=== PATIENT | female | born 1950 | race Caucasian/White ===

== ENCOUNTER → 2018-06-24 | Outpatient (CLI) | payer MEDICARE, OTHER ==
--- NOTE | 2018-06-24 11:41 | CT ---
EXAM DESCRIPTION: Cervical Spine: Computed Tomography. CLINICAL HISTORY: 67 years Female CERVICAL RADICULOPATHY. Neck pain. COMPARISON: Chest CT scan 06/06/2013. TECHNIQUE: Spiral, axial 2.5 x 2.5 mm scans through the cervical spine without contrast. Coronal and sagittal 2.0 mm Reconstructions. Total Exam DLP: 292.36 mGy-cm. This exam was performed according to our departmental dose-optimization program which includes automated exposure control, adjustment of the mA and/or kV according to patient size and/or use of iterative reconstruction technique; to reduce radiation dose to as low as reasonably achievable (ALARA). FINDINGS: Minimal narrowing of the atlantoaxial joint. Atlantoaxial occipital joint and C1-C2 facets are negative. C2-C3: Minimal posterior disc bulging. Disc space maintained. Arthrosis left facet and minimal left foraminal narrowing. Right neuroforamen and canal are patent. No fracture. C3-C4: Minimal posterior disc bulge. Disc space maintained. Canal and right neuroforamen are patent. Mild left neural foraminal narrowing with left facet arthrosis. No fracture. C4-C5: Significant disc space loss. Trace retrolisthesis. Anterior disc bulge and endplate ridging. Posterior disc osteophyte complex encroaching on the canal more to the right of midline. Moderate right neural foraminal narrowing with uncinate spur. Mild left neural foraminal narrowing. Facets are negative. No fracture. C5-6: Marked disc space loss. Posterior disc osteophyte complex abutting the cord. Bilateral uncinate spurs. Right facet arthrosis and right neural foraminal stenosis. Mild to moderate left neural foraminal narrowing. No fracture. C6-7: Disc space maintained with no significant disc bulge. Bilateral facets unremarkable. Canal and neural foramina are patent. No fractures. C7-T1: Disc space maintained with no disc bulge. Bilateral neural foramina and canal are patent. Facets are negative. No fractures. Other: Marked scarring in the bilateral lung apices with pleural thickening and blebs and bulla more right than left. Evaluation of the soft tissues limited due to lack of IV contrast. Small lymph nodes bilaterally in the base of the neck thoracic inlet, and upper neck and skull base soft tissues. No significant mass effect or effacement of the airway. IMPRESSION: 1. Arthrosis of the left C2-3 facet and minimal left neural foraminal narrowing. Mild left neural foraminal narrowing and facet arthrosis at C3-4. 2. Moderate disc space loss C4-5 posterior disc osteophyte complex encroaching on the canal and abutting the cord to the right of midline. Moderate right neural foraminal narrowing with uncinate spur. Correlate for right C5 radiculopathy. 3. Marked disc space loss at C5-C6. Posterior disc osteophyte complex abutting the cord. Right neural foraminal stenosis with right facet arthrosis and uncinate spur. Correlate for right C6 radiculopathy. 4. Advanced emphysematous changes in the bilateral lung apices. Also seen on prior chest CT scan July 2014. Electronically signed by: Tariq Flynn MD 06/24/2018 11:40 AM [employer]
== END ==
LOC: CT 07:41
DX: M54.12 Radiculopathy, cervical region (principal); M47.812 Spondylosis without myelopathy or radiculopathy, cervical region; M75.112 Incomplete rotator cuff tear or rupture of left shoulder, not specified as traumatic; M13.812 Other specified arthritis, left shoulder; M85.829 Other specified disorders of bone density and structure, unspecified upper arm

== ENCOUNTER → 2018-06-25 | Outpatient (CLI) | payer MEDICARE, OTHER ==
--- NOTE | 2018-06-25 10:15 | RAD ---
EXAM DESCRIPTION: Shoulder,Left four x-ray Views CLINICAL HISTORY: PAIN IN LEFT SHOULDER COMPARISON: None Available. TECHNIQUE: Four views of the left shoulder. FINDINGS: There is adequate internal and external rotation. Normal alignment on transaxillary and transscapular Y views There is no fracture or dislocation. Mild degenerative changes at the left AC joint. No focal bone lesion. Degenerative changes in the lower C-spine. Left apical pleural parenchymal scarring in the lung is present. There is a left breast implant. IMPRESSION: Negative for fracture or dislocation. Electronically signed by: Nikko Alcaraz MD 06/25/2018 10:14 AM [facility]
== END ==
LOC: RAD 08:03
PROVIDERS: ATTEND Orthopaedic Surgery
DX: M25.512 Pain in left shoulder (principal)

== ENCOUNTER → 2018-09-09 | Outpatient (CLI) | payer MEDICARE, OTHER ==
--- NOTE | 2018-09-09 15:32 | MRI ---
EXAM DESCRIPTION: Thoracic Spine w/o Contrast: Magnetic Resonance Imaging. CLINICAL HISTORY: THORACIC RADICULOPATHY COMPARISON: CT scan of the cervical spine 06/24/2018. TECHNIQUE: Multiplanar, multiple standard sequences, non contrast MRI, thoracic spine. FINDINGS: Approximately 50% compression of the central and anterior T3 vertebral body is visualized with marrow edema involving the entire vertebral body and bilateral pedicles. There is also greater than 50% compression of the T4 central and anterior vertebral body with marrow edema involving the entire vertebral body and both pedicles. 3 mm retropulsion of the vertebral body without cord compression. T3-4 disc space is maintained. This appears to be associated with a ill-defined invasive soft tissue mass also involving the medial left upper lobe pleura and mediastinum posterior to the descending aorta and extending laterally to the posterior left upper lobe pleura. There is also involvement of the adjacent lung, the paravertebral tissues abutting the left T2 vertebral body, the left T2-3 foramen, the medial left second rib, medial left third rib and medial left fourth rib. Most of the T2-3 disc space and T3-4 disc space are maintained. The left T3-4 foramen is destroyed. Invasion of the spinal canal from T3 through T5 with partial compression of the cord. Mostly anterior extradural mass. Fluid collection posterior to the T4 vertebral body anterior to the cord, either extra medullary or extradural. Invasion of the posterior T5 vertebral body more on the left than the right with involvement of both pedicles and involvement of bilateral T4-T5 foramina. Involvement of the medial left fifth rib and left transverse process. No involvement of the T5-6 disc space or foramina. No involvement of the T1-T2 disc space canal and bilateral foramina. Edema in the posterior paraspinal muscles around the posterior elements and the infiltrating tissue. Destruction of facet joints bilaterally at T3-T4 and T4-T5. T2-T3 and T5-T6 facet joints are maintained. Bilaterally. Marrow edema like signal in the anterior T9 vertebral body and also to the left of midline with no significant abnormality of the disc space or foramina T8-T9. No canal abnormality. No abnormality seen on the T1-T2 disc space superiorly to C6. Herniated C5-C6 disc and posterior hypertrophic ligaments with canal stenosis again noted. T5-T6 disc and more inferior discs with normal signal no significant bulging and disc spaces maintained, except for anterior spondylosis at T11-T12. No canal or foraminal stenosis at these levels. Posterior elements are unremarkable. Conus terminates below L1. Remaining cord with normal signal, no compression. Paravertebral soft tissues are unremarkable at other levels. Normal marrow signal in the remaining vertebral bodies and the posterior elements. Vertebral bodies are not compressed at other levels. Again noted is emphysematous-type lung disease bilaterally with infiltrate or scarring or mass in the right upper lobe and the right upper posterior pleura at the same level as the infiltrative process on the left. IMPRESSION: 1. Invasive process, most likely malignancy from the medial left upper lung lobe or adjacent pleura, involving the lung, pleura, mediastinum, and T3 and T4 vertebral bodies and posterior elements with pathologic compression fractures. 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 Tumor also involving the spinal canal with compression of the ventral cord. Fluid collection posterior to T4 is either extra medullary or extradural, contributing to cord compression. Tumor also spreading into the right T3-T4 foramen, adjacent soft tissues, and right medial posterior T4 rib. Suspect spine is unstable particularly at the T4 level and neurosurgical consult recommended for spine stabilization. 2. Medial left posterior second third and fourth ribs are also involved. Possible metastatic lesion anterior and left side T9 vertebral body superiorly with T8-T9 and T9-T10 disc spaces and foramina patent. 3. Consider follow-up scanning of the thoracic spine with gadolinium IV contrast and the cervical and lumbar spines without and with gadolinium IV contrast. Consider hybrid PET CT scan. Or CT scans without and with IV contrast lungs abdomen and pelvis. CRITICAL COMMUNICATION: The critical value was discussed directly by phone with Dr. Lorenz's associate, STEVEN Gilbert, at approximately 1455 hours, on September 09, 2018. Electronically signed by: Tariq Flynn MD 09/09/2018 3:29 PM [employer]
== END ==
LOC: MRI 10:00
PROVIDERS: ATTEND Emergency Medicine
DX: M54.14 Radiculopathy, thoracic region (principal); D49.2 Neoplasm of unspecified behavior of bone, soft tissue, and skin

== ENCOUNTER 2018-09-16 12:51 | Emergency (ER) | payer MEDICARE, OTHER ==
[2018-09-16] MEDS ORDERED: NOREPINEPHRINE BITARTRATE 4 MG/4 ML VIAL IVPB ONE ×2 (13:17→13:21)
--- NOTE | 2018-09-16 13:19 | ED.PDOC ---
History of Present Illness - General Stated Complaint: cardiac arrest Time Seen by Provider: 09/16/18 12:57 Source: family, EMS Exam Limitations: clinical condition - History of Present Illness Initial Comments: Patient presents after having a witnessed cardiac arrest. She had been down for several minutes before EMS arrived. She received two rounds of epinephrine and one round of bicarbonate while CPR was in progress. She was intubated during that time period and EMS was able to get a pulse. She was in asystole when they arrived and now is in sinus tachycardia. She was diagnosed with stage 4 Lung CA las week with metastasis to the thoracic spine. She has an extensive history of smoking and COPD. No cardiac history. No other information is available. Timing/Duration: 1/2 hour Severity: severe Improving Factors: nothing Worsening Factors: nothing Associated Symptoms: other - as in HPI Allergies/Adverse Reactions: Allergies NO KNOWN ALLERGY Allergy (Verified 01/14/14 10:57) Home Medications: Ambulatory Orders Estradiol 1 mg PO DAILY 06/02/13 Albuterol Sulfate 0.5 % IN QID #0 neb 06/07/13 Digoxin 0.125 mg PO PRN PRN 01/14/14 Lisinopril & Hydrochlorothiazi [Lisinopril/Hctz 20-25 mg] 1 tab PO PRN PRN 01/14/14 predniSONE 1 mg PO DAILY #25 tab 01/14/14 Ciprofloxacin [Cipro] 500 mg PO BID #20 tab 07/31/14 Review of Systems - Review of Systems Unable to Obtain Due To: intubated Past Medical History (General) - Patient Medical History Hx Seizures: No Hx Stroke: No Hx Dementia: No Hx Asthma: No Hx of COPD: Yes Hx Cardiac Disorders: No Hx Congestive Heart Failure: No Hx Pacemaker: No Hx Hypertension: Yes Hx Thyroid Disease: No Hx Diabetes: No Hx Gastroesophageal Reflux: No Hx Renal Disease: No Hx Cancer: No Hx of HIV: No Hx Hepatitis C: No Hx MRSA: No - Vaccination History Hx Pneumococcal Vaccination: No - Social History Hx Tobacco Use: Yes Hx Alcohol Use: No Hx Substance Use: No Hx Substance Use Treatment: No Hx Depression: No Family Medical History - Family History Mother Family History: Unknown Living Status: Cause of : myocardial infarction Hx Family;Other: Mother of heart attack Father Hx Family;Other: Hx leukemia Physical Exam - Physical Exam General Appearance: Other - GCS 3 Eye Exam: bilateral abnormal pupil - dilated and fixed Ears, Nose, Throat: normal ENT inspection Respiratory: rales Cardiovascular/Chest: normal peripheral pulses, tachycardia Gastrointestinal/Abdominal: normal bowel sounds, soft Extremity: normal inspection Neurologic: other - GCS 3 Skin Exam: mottled Lymphatic: no adenopathy Progress - Progress Progress: 09/16/18 13:22 Labs drawn. SBP dropped to 67. Patient started on Levaphed a 5 mcg/min. Accepted for transfer to [facility] in [place]. Departure - Departure Clinical Impression: Cardiac arrest Disposition: Transfer to Hospital Condition: Serious Home Medications: Ambulatory Orders Estradiol 1 mg PO DAILY 06/02/13 Albuterol Sulfate 0.5 % IN QID #0 neb 06/07/13 Digoxin 0.125 mg PO PRN PRN 01/14/14 Lisinopril & Hydrochlorothiazi [Lisinopril/Hctz 20-25 mg] 1 tab PO PRN PRN 01/14/14 predniSONE 1 mg PO DAILY #25 tab 01/14/14 Ciprofloxacin [Cipro] 500 mg PO BID #20 tab 07/31/14
[2018-09-16] MEDS ORDERED: DEXTROSE 5% 250ML 250 ML ONE (13:21)
--- NOTE | 2018-09-16 13:25 | RAD ---
Study: Single Frontal Radiograph of the Chest. Indication:cardiac arrest Comparison: May. Impression: Patient rotated to the right. Endotracheal tube terminates 3.8 cm above the [place]. Mild cardiomegaly. Progressed [id number] interstitial edema. No pleural effusion or pneumothorax. Hazy opacity right lung apex noted. Short-term follow-up recommended. Electronically signed by: Ivan Quiles MD 09/16/2018 1:22 PM CDT
[2018-09-16] MEDS ORDERED: NOREPINEPHRINE BITARTRATE 4 MG in DEXTROSE 5% 250ML 250 ML IVPB SCH (13:30)
[2018-09-16 14:08] VITALS: BP 75/52; O2SAT 94
[2018-09-17 15:49] VITALS: TEMP 94.9
== END 2018-09-16 14:08 | disposition short-term general hospital (02) ==
LOC: ER 12:51
DX: I46.9 Cardiac arrest, cause unspecified (principal); C34.90 Malignant neoplasm of unspecified part of unspecified bronchus or lung; C79.51 Secondary malignant neoplasm of bone; J44.9 Chronic obstructive pulmonary disease, unspecified; I10 Essential (primary) hypertension; Z87.891 Personal history of nicotine dependence; Z79.899 Other long term (current) drug therapy
CPT/HCPCS: 36415; 36600; 71045; 80053; 80162; 81001; 82550; 82553; 82803; 82805; 83605; 83735; 83880; 84484; 85025; 86850; 86900; 86901; 86922; 93005; 94002; 94770; J7060; P9016